=== PATIENT | male | born 1930 | race Caucasian/White ===

== ENCOUNTER 2017-10-28 14:40 | Emergency (ER) | payer OTHER ==
[~2017-10-28] VITALS: Ht 152.4 cm; Wt 57.6 kg
[2017-10-28 15:37] LABS: BASOPHIL (%) 0.6 % (0-1); EOSINOPHIL (%) 1.1 % (0-5); EOSINOPHIL COUNT 0.1 K/uL (0-0.3); HEMATOCRIT 40.5 % (38.0-50.0); IMMATURE GRANULOCYTE (%) 0.1 % (0.0-0.7); LYMPHOCYTE COUNT 1.3 K/uL (1.0-2.8); MCH 28.1 PG (29.0-34.0); MCHC 32.1 G/DL (30.0-36.0); MCV 87.7 FL (86-99); MONOCYTE (%) 9.1 % (3-12); MONOCYTE COUNT 0.7 K/uL (0-0.8); NEUTROPHIL (%) 71.1 % (45-76); NEUTROPHIL COUNT 5.1 K/uL (1.8-6.4); PLATELET COUNT 148 K/uL (156-360); RBC DIS.WIDTH-CV 13.2 % (11.8-14.6); RBC DIS.WIDTH-SD 42.4 % (39-53); RED BLOOD COUNT 4.62 M/uL (4.00-5.50); WHITE BLOOD COUNT 7.2 K/uL (4.1-10.2)
[2017-10-28 15:47] LABS: ALBUMIN 3.8 g/dL (3.2-4.8)
[2017-10-28 15:48] LABS: CHLORIDE 108 mEq/L (99-109); POTASSIUM 4.4 mEq/L (3.7-5.4); SODIUM 142 mEq/L (136-147)
[2017-10-28 15:50] LABS: GLUCOSE 104 mg/dL (70-99); TOTAL PROTEIN 6.2 g/dL (6.4-8.3)
[2017-10-28 15:52] LABS: TOTAL BILIRUBIN 0.7 mg/dL (0.0-1.0)
[2017-10-28 15:53] LABS: ALKALINE PHOSPHATASE 66 IU/L (3-129)
[2017-10-28 15:54] LABS: CREATININE 1.3 mg/dL (0.6-1.3); GFR ESTIMATE (CALCULATED) 55 mL/min/ (58.99-99999)
[2017-10-28 15:55] LABS: AST (GOT) 24 IU/L (2-34); UREA NITROGEN (BUN) 26 mg/dL (9-23)
[2017-10-28 15:56] LABS: ALT (GPT) 16 IU/L (3-49)
[2017-10-28 16:52] LABS: TROP-I INTERPRETATION NEGATIVE; TROPONIN-I 0.08 ng/mL (0.0-0.30)
[2017-10-28 18:58] VITALS: BP 93/65
== END 2017-10-28 19:19 | disposition home or self-care (01) ==
LOC: EME 14:40
PROVIDERS: Emergency Medicine
DX: R53.1 Weakness (principal); R63.0 Anorexia; F03.90 Unspecified dementia, unspecified severity, without behavioral disturbance, psychotic disturbance, mood disturbance, and anxiety; I44.7 Left bundle-branch block, unspecified
CPT/HCPCS: 71045; 80053; 81003; 84484; 85025; 93005; J7030

== ENCOUNTER 2017-11-07 07:27 | Emergency (ER) | payer OTHER ==
[~2017-11-07] VITALS: Ht 157.5 cm; Wt 61.5 kg
[2017-11-07] MEDS ORDERED: CARVEDILOL3.125 MG PO (07:38)
[2017-11-07] MEDS ORDERED: ARICEPT5 MG PO (07:39)
[2017-11-07] MEDS ORDERED: MELATIN3 MG PO (07:40)
[2017-11-07] MEDS ORDERED: IVERMECTIN3 MG PO (07:40)
[2017-11-07] MEDS ORDERED: SENEXON8.6 MG PO (07:40)
[2017-11-07 09:11] VITALS: BP 150/74
== END 2017-11-07 10:13 | disposition home or self-care (01) ==
LOC: EME 07:27
DX: S30.0XXA Contusion of lower back and pelvis, initial encounter (principal); S60.221A Contusion of right hand, initial encounter; S60.311A Abrasion of right thumb, initial encounter; W05.0XXA Fall from non-moving wheelchair, initial encounter; Y92.099 Unspecified place in other non-institutional residence as the place of occurrence of the external cause; I10 Essential (primary) hypertension; F03.90 Unspecified dementia, unspecified severity, without behavioral disturbance, psychotic disturbance, mood disturbance, and anxiety
CPT/HCPCS: 71045; 99281; 99284